=== PATIENT | male | born 1940 | race American Indian/Alaskan Native ===

== ENCOUNTER 2017-03-05 09:50 | Day surgery (SDC) | payer OTHER, MEDICARE ==
[~2017-03-05] VITALS: Ht 170.2 cm; Wt 81.2 kg
[~2017-03-05 09:50] MED LIST: ACET120S; ASPI81CH PO; HYDR-86; LEVSOD125 PO; LISI5 PO; MECL25 PO; MELO7.5 PO; ONDA8; PROM25S; ROSU10TA PO; Silvadene20 GM
== END 2017-03-05 12:00 | disposition home or self-care (01) ==
LOC: ORSCSDS 09:50
PROVIDERS: Surgery
PROC: 0DBL8ZX Excision of Transverse Colon, Via Natural or Artificial Opening Endoscopic, Diagnostic (ICD-10-PCS; principal; 2017-03-05 11:00)
PROC: 0DBK8ZX Excision of Ascending Colon, Via Natural or Artificial Opening Endoscopic, Diagnostic (ICD-10-PCS; principal; 2017-03-05 11:00)
PROC: 0DBN8ZX Excision of Sigmoid Colon, Via Natural or Artificial Opening Endoscopic, Diagnostic (ICD-10-PCS; principal; 2017-03-05 11:00)
DX: Z12.11 Encounter for screening for malignant neoplasm of colon (principal); D12.2 Benign neoplasm of ascending colon; D12.3 Benign neoplasm of transverse colon; D12.5 Benign neoplasm of sigmoid colon; E03.9 Hypothyroidism, unspecified; I10 Essential (primary) hypertension; Z86.010 Personal history of colon polyps; E78.5 Hyperlipidemia, unspecified; Z87.891 Personal history of nicotine dependence; Z79.82 Long term (current) use of aspirin; Z79.899 Other long term (current) drug therapy
CPT/HCPCS: 88305; J7120

== ENCOUNTER 2017-05-07 08:53 | Day surgery (SDC) | payer OTHER, MEDICARE | END 2017-05-07 22:38 | disposition home or self-care (01) | LOC: CT 08:53 | PROVIDERS: Radiology Diagnostic Radiology | PROC: 0BBJ3ZX Excision of Left Lower Lung Lobe, Percutaneous Approach, Diagnostic (ICD-10-PCS; principal; 2017-05-07 10:00) | DX: C34.32 Malignant neoplasm of lower lobe, left bronchus or lung (principal); C77.0 Secondary and unspecified malignant neoplasm of lymph nodes of head, face and neck; R91.8 Other nonspecific abnormal finding of lung field; C09.0 Malignant neoplasm of tonsillar fossa; Z87.891 Personal history of nicotine dependence; Z92.3 Personal history of irradiation | CPT/HCPCS: 32405; 77012; 88305 ==

== ENCOUNTER 2018-08-03 09:17 | Day surgery (SDC) | payer OTHER, MEDICARE ==
[~2018-08-03] VITALS: Ht 170.2 cm; Wt 77.2 kg
[~2018-08-03 09:17] MED LIST changes: +LO-DOSE ASPIRIN81 MG PO; +Mobic15 MG PO
== END 2018-08-03 10:58 | disposition home or self-care (01) ==
LOC: ORSCSDS 09:17
PROVIDERS: Surgery
PROC: 0DBP8ZX Excision of Rectum, Via Natural or Artificial Opening Endoscopic, Diagnostic (ICD-10-PCS; principal; 2018-08-03 10:30)
PROC: 0DBK8ZX Excision of Ascending Colon, Via Natural or Artificial Opening Endoscopic, Diagnostic (ICD-10-PCS; principal; 2018-08-03 10:30)
DX: Z12.11 Encounter for screening for malignant neoplasm of colon (principal); K62.1 Rectal polyp; D12.4 Benign neoplasm of descending colon; Z86.010 Personal history of colon polyps; Z80.0 Family history of malignant neoplasm of digestive organs; I10 Essential (primary) hypertension; E03.9 Hypothyroidism, unspecified; E78.5 Hyperlipidemia, unspecified; Z87.891 Personal history of nicotine dependence; Z79.82 Long term (current) use of aspirin; Z79.899 Other long term (current) drug therapy
CPT/HCPCS: 88305; J2704; J7120

== ENCOUNTER 2022-08-05 14:02 | Day surgery (SDC) | payer MEDICARE, OTHER ==
[~2022-08-05] VITALS: Ht 170.2 cm; Wt 86.4 kg
[2022-08-05] MEDS ORDERED: Prednisone10 MG (15:04)
--- NOTE | 2022-08-05 15:10 | NUR ---
08/05/22 1510 Lina Campos TETRACAINE TO RIGHT EYE AT 1508 PLEDGET TO RIGHT EYE AT 1510
[2022-08-05 16:25] VITALS: BP 136/82
== END 2022-08-05 16:44 | disposition home or self-care (01) ==
LOC: ORSCSDS 14:02
PROVIDERS: Ophthalmology
PROC: 08DJ3ZZ Extraction of Right Lens, Percutaneous Approach (ICD-10-PCS; principal; 2022-08-05 15:30)
DX: H25.11 Age-related nuclear cataract, right eye (principal); I10 Essential (primary) hypertension; Z79.899 Other long term (current) drug therapy
CPT/HCPCS: J2250; J3010; J3301; J7040; V2632

== ENCOUNTER 2023-10-18 10:40 | Emergency (ER) | payer MEDICARE, OTHER ==
[~2023-10-18] VITALS: Ht 170.2 cm; Wt 82.5 kg
[~2023-10-18 10:40] MED LIST changes: +Prednisone10 MG
[2023-10-18 11:31] VITALS: BP 132/76
[2023-10-18] MEDS ORDERED: PAXLOVID 300-11 EAC1 PO (11:37)
== END 2023-10-18 11:39 | disposition home or self-care (01) ==
LOC: ER 10:40
DX: U07.1 COVID-19 (principal); I10 Essential (primary) hypertension; E03.9 Hypothyroidism, unspecified; Z88.5 Allergy status to narcotic agent; Z79.899 Other long term (current) drug therapy; Z87.891 Personal history of nicotine dependence
CPT/HCPCS: 99282